=== PATIENT | female | born 1975 | race Caucasian/White ===

== ENCOUNTER → 2018-08-28 | Outpatient (CLI) | payer OTHER ==
[~2018-08-28] MED LIST: CITA20TA6 PO; IBUP200T49 PO; LACT1CAP37 PO; NORE1TAB26 PO; OMEG-76 PO; PANT40TA5 PO; TRAM50TA2 PO
[2018-08-28 17:02] LABS: BASOPHILS % (AUTO) 1 % (0-1); EOSINOPHILS # (AUTO) 0.39 x10^3/uL (0-0.4); EOSINOPHILS % (AUTO) 2 % (1-7); LYMPHOCYTES # (AUTO) 3.44 x10^3/uL (1-3.4); LYMPHOCYTES % (AUTO) 21 % (22-44); MD NO; MEAN CORPUSCULAR HEMOGLOBIN 29.5 pg (27.0-34.8); MEAN CORPUSCULAR HGB CONC 34.1 g/dL (32.4-35.8); MEAN CORPUSCULAR VOLUME 86.5 fL (80-100); MONOCYTES # (AUTO) 0.93 x10^3/uL (0.2-0.8); MONOCYTES % (AUTO) 6 % (2-9); NEUTROPHILS # (AUTO) 11.35 x10^3/uL (1.8-6.8); NEUTROPHILS % (AUTO) 70 % (42-75); PLATELET COUNT 303 x10^3/uL (130-400); RED CELL DISTRIBUTION WIDTH 15.4 % (9.6-15.2)
[2018-08-28 17:06] LABS: MICROSCOPIC NOT IND
[2018-08-28 17:08] LABS: ANION GAP 5 mmol/L (5-15); CALCIUM 8.9 mg/dL (8.5-10.1); CHLORIDE 110 mmol/L (98-107); CREATININE 0.96 mg/dL (0.55-1.02)
[2018-08-28 17:09] LABS: INTERNATIONAL NORMALIZED RATIO 0.9 (0.93-1.1); PROTHROMBIN TIME 9.5 Seconds (9.6-11.5)
[2018-08-28 17:10] LABS: CULTURE INDICATED? NO
== END | disposition home or self-care (01) ==
LOC: STAR 15:51
PROVIDERS: ATTEND Neurological Surgery
DX: Z01.818 Encounter for other preprocedural examination (principal); M51.37 Other intervertebral disc degeneration, lumbosacral region
CPT/HCPCS: 36415; 71046; 80048; 81003; 85025; 85610; 85730; 93005

== ENCOUNTER 2018-09-12 05:38 | Inpatient (IN) | payer OTHER ==
[~2018-09-12] VITALS: Ht 157.5 cm; Wt 86.4 kg
[2018-09-12] MEDS ORDERED: LACTATED RINGERS 1,000 ML IV SCH (06:17)
[2018-09-12 06:39] VITALS: BP 119/82
[2018-09-12 06:41] LABS: HCG UR SG 1.022 (1.003-1.030)
[2018-09-12] MEDS ORDERED: THROMBIN 5,000 UNIT VIAL TP ONE (06:47)
[2018-09-12] MEDS ORDERED: BACITRACIN 50,000 UNIT ONE (06:47)
[2018-09-12] MEDS ORDERED: BUPIVACAINE/EPI 0.5% 1:200K ONE (06:47)
[2018-09-12] MEDS ORDERED: MIDAZOLAM 1 MG/ML, 2ML ONE ×2 (07:04→10:46)
[2018-09-12] MEDS ORDERED: FENTANYL PF 250 MCG/5ML ONE (07:05)
[2018-09-12] MEDS ORDERED: SCOPOLAMINE PATCH, 1.5MG PATCH.TD72 TD ONE (07:10)
[2018-09-12] MEDS ORDERED: GABAPENTIN 300 MG CAPSULE ONE ×2 (07:10→07:11)
[2018-09-12] MEDS ORDERED: ACETAMINOPHEN 500 MG TABLET ONE ×2 (07:10)
[2018-09-12] MEDS ORDERED: ONDANSETRON 2MG/ML, 2ML ONE (07:36)
[2018-09-12] MEDS ORDERED: SUCCINYLCHOLINE 20 MG/ML, 10ML ONE (07:36)
[2018-09-12] MEDS ORDERED: DEXAMETHASONE 4 MG/ML, 1ML ONE (07:36)
[2018-09-12] MEDS ORDERED: CEFAZOLIN 1,000 MG ONE (07:36)
[2018-09-12] MEDS ORDERED: NEOSTIGMINE 1 MG/ML, 10ML ONE (07:36)
[2018-09-12] MEDS ORDERED: PROPOFOL 10 MG/ML, 50ML ONE (07:36)
[2018-09-12] MEDS ORDERED: PROPOFOL 10 MG/ML, 20ML ONE (07:36)
[2018-09-12] MEDS ORDERED: GLYCOPYRROLATE 0.2MG/1ML, 5ML ONE (07:36)
[2018-09-12] MEDS ORDERED: ROCURONIUM 10 MG/ML,10ML ONE (07:36)
[2018-09-12] MEDS ORDERED: PROMETHAZINE 25 MG/ML, 1ML IV PRN (08:30)
[2018-09-12] MEDS ORDERED: LABETALOL 5 MG/ML SYRINGE IV PRN (08:30)
[2018-09-12] MEDS ORDERED: ALBUTEROL SULFATE 2.5 MG/3 ML NPPB PRN (08:30)
[2018-09-12] MEDS ORDERED: hydrALAzine 20 MG/ML, 1ML IV PRN (08:30)
[2018-09-12] MEDS ORDERED: HYDROmorphone 2 MG/ML, 1ML IVPush PRN (08:30)
[2018-09-12] MEDS ORDERED: HALOPERIDOL 5 MG/ML IV PRN (08:30)
[2018-09-12] MEDS ORDERED: OXYcodone 5 MG/5 ML ORAL.SOL UDC PO PRN (08:30)
[2018-09-12] MEDS ORDERED: THROMBIN 20,000 UNIT VIAL TP ONE (08:44)
[2018-09-12] MEDS ORDERED: MEPERIDINE/PF 100 MG/ML ONE (09:29)
[2018-09-12] MEDS ORDERED: HYDROmorphone PCA 30 MG/30 ML IV PRN (09:30)
[2018-09-12] MEDS ORDERED: PHARMACY MAY ADJ FOR RENAL FX MC PRN (09:30)
[2018-09-12] MEDS ORDERED: BISACODYL 10 MG SUPP PR PRN (09:30)
[2018-09-12] MEDS ORDERED: DIPHENHYDRAMINE 50 MG/ML, 1ML IVPush PRN (09:30)
[2018-09-12] MEDS ORDERED: MEPERIDINE/PF 100 MG/ML IM PRN (09:30)
[2018-09-12] MEDS ORDERED: ONDANSETRON 2MG/ML, 2ML IVPush PRN (09:30)
[2018-09-12] MEDS ORDERED: HYDROmorphone 1 MG/ML, 1ML INJ IVPush PRN (09:30)
[2018-09-12] MEDS ORDERED: ACETAMINOPHEN 325 MG TABLET PO PRN (09:30)
[2018-09-12] MEDS ORDERED: MAGNESIUM HYDROXIDE 8%, 30ML UDC PO PRN (09:30)
[2018-09-12] MEDS ORDERED: PROMETHAZINE 25 MG/ML, 1ML IM PRN (09:30)
[2018-09-12] MEDS ORDERED: MEPERIDINE/PF 25MG/ML,1ML ONE (09:35)
[2018-09-12] MEDS ORDERED: FENTANYL PF 100 MCG/2ML ONE (09:53)
[2018-09-12] MEDS: FENTANYL PF 100 MCG/2ML IV PRN ×2 (09:56→10:03)
[2018-09-12] MEDS ORDERED: MEPERIDINE/PF 25MG/0.5ML IVPush PRN (10:00)
[2018-09-12] MEDS ORDERED: HYDROmorphone 2 MG/ML, 1ML ONE (10:06)
[2018-09-12] MEDS ORDERED: METHOCARBAMOL 750 MG TABLET ONE (10:20)
[2018-09-12] MEDS: METHOCARBAMOL 750 MG TABLET PO PRN (10:22)
[2018-09-12 11:04] VITALS: BP 114/72
[2018-09-12] MEDS: NS + 20MEQ KCL 1,000 ML IV SCH (11:43)
[2018-09-12 13:45] VITALS: BP 113/76
[2018-09-12] MEDS: CEFAZOLIN PMX 1GM/50ML 50 ML IVPB SCH ×2 (15:13→23:36)
[2018-09-12 18:35] VITALS: BP 96/60
[2018-09-12] MEDS: SODIUM CHLORIDE FLUSH 10ML SYR IVF SCH (21:00)
[2018-09-13 00:27] VITALS: BP 96/61
[2018-09-13] MEDS: NS + 20MEQ KCL 1,000 ML IV SCH ×2 (01:24→14:10)
[2018-09-13] MEDS: METHOCARBAMOL 750 MG TABLET PO PRN ×3 (01:31→20:39)
[2018-09-13 04:07] VITALS: BP 89/59
[2018-09-13 04:21] VITALS: BP 95/61
[2018-09-13 07:26] VITALS: BP 98/63
[2018-09-13] MEDS: PANTOPROZOLE 40MG TABLET PO SCH (08:35)
[2018-09-13] MEDS: CITALOPRAM 10 MG TABLET PO SCH (08:35)
[2018-09-13] MEDS: SODIUM CHLORIDE FLUSH 10ML SYR IVF SCH ×2 (08:35→20:39)
[2018-09-13] MEDS: SENNA/DOCUSATE TABLET PO SCH (08:36)
[2018-09-13] MEDS: NORETH A ET ESTRA PO SCH (08:37)
[2018-09-13] MEDS: FE FUMARATE PO SCH (08:37)
[2018-09-13] MEDS: [UNRECOGNIZED DRUG - OTHER] PO SCH (08:37)
[2018-09-13 12:26] VITALS: BP 92/61
[2018-09-13] MEDS: OXYcodone/APAP 5/325MG TABLET PO PRN ×3 (14:12→20:39)
[2018-09-13 20:09] VITALS: BP 106/72
[2018-09-14 04:14] VITALS: BP 91/61
[2018-09-14] MEDS: OXYcodone/APAP 5/325MG TABLET PO PRN ×5 (04:26→21:42)
[2018-09-14] MEDS: METHOCARBAMOL 750 MG TABLET PO PRN ×2 (04:26→21:42)
[2018-09-14] MEDS: NS + 20MEQ KCL 1,000 ML IV SCH ×2 (04:27→17:27)
[2018-09-14] MEDS: SODIUM CHLORIDE FLUSH 10ML SYR IVF SCH ×2 (09:00→21:42)
[2018-09-14 09:05] VITALS: BP 94/66
[2018-09-14] MEDS: CITALOPRAM 10 MG TABLET PO SCH (09:07)
[2018-09-14] MEDS: SENNA/DOCUSATE TABLET PO SCH (09:07)
[2018-09-14] MEDS: PANTOPROZOLE 40MG TABLET PO SCH (09:07)
[2018-09-14] MEDS: NORETH A ET ESTRA PO SCH (09:09)
[2018-09-14] MEDS: FE FUMARATE PO SCH (09:09)
[2018-09-14] MEDS: [UNRECOGNIZED DRUG - OTHER] PO SCH (09:09)
[2018-09-14] MEDS: DEXAMETHASONE 4 MG TABLET PO SCH ×2 (15:04→17:56)
[2018-09-14 15:11] VITALS: BP 96/67
[2018-09-14 19:11] VITALS: BP 109/74
[2018-09-15 01:03] VITALS: BP 105/71
[2018-09-15] MEDS: OXYcodone/APAP 5/325MG TABLET PO PRN ×2 (04:18→10:08)
[2018-09-15] MEDS: NS + 20MEQ KCL 1,000 ML IV SCH (05:23)
[2018-09-15 07:20] VITALS: BP 105/66
[2018-09-15] MEDS: SENNA/DOCUSATE TABLET PO SCH (08:12)
[2018-09-15] MEDS: CITALOPRAM 10 MG TABLET PO SCH (08:12)
[2018-09-15] MEDS: DEXAMETHASONE 4 MG TABLET PO SCH ×2 (08:12→12:00)
[2018-09-15] MEDS: [UNRECOGNIZED DRUG - OTHER] PO SCH (08:12)
[2018-09-15] MEDS: NORETH A ET ESTRA PO SCH (08:12)
[2018-09-15] MEDS: FE FUMARATE PO SCH (08:12)
[2018-09-15] MEDS: PANTOPROZOLE 40MG TABLET PO SCH (08:12)
[2018-09-15] MEDS: SODIUM CHLORIDE FLUSH 10ML SYR IVF SCH (08:13)
[2018-09-15] MEDS ORDERED: OXYC-307 PO (10:42)
[2018-09-15] MEDS ORDERED: METH750T87 PO (10:43)
[2018-09-15] MEDS ORDERED: METH4TAB2 PO (10:44)
[2018-09-15 13:10] VITALS: BP 107/71
== END 2018-09-15 13:28 | disposition home or self-care (01) | DRG 460 ==
LOC: ORIP 05:38 → 4NOR 10:54
PROVIDERS: ADMIT Neurological Surgery; ATTEND Neurological Surgery
PROC: 0SB40ZZ Excision of Lumbosacral Disc, Open Approach (ICD-10-PCS; 2018-09-12)
PROC: 3E0U0GB Introduction of Recombinant Bone Morphogenetic Protein into Joints, Open Approach (ICD-10-PCS; 2018-09-12)
PROC: 0SG30A0 Fusion of Lumbosacral Joint with Interbody Fusion Device, Anterior Approach, Anterior Column, Open Approach (ICD-10-PCS; principal; 2018-09-12 07:30)
DX: M51.17 Intervertebral disc disorders with radiculopathy, lumbosacral region (principal); M48.07 Spinal stenosis, lumbosacral region; Z88.8 Allergy status to other drugs, medicaments and biological substances; Z87.891 Personal history of nicotine dependence
CPT/HCPCS: 72100; 74018; 81025; 95938; 95941; C1713; C1776; G0378; J0690; J1100; J1170; J2175; J2250; J2405; J2704; J2710; J3010; J3480; C1762; J0330; J7120